=== PATIENT | female | born 1965 | race Caucasian/White ===

== ENCOUNTER 2018-10-11 03:59 | Inpatient (IN) | payer OTHER ==
[2018-10-11 04:05] VITALS: BMI 22.6
--- NOTE | 2018-10-11 04:10 | ED PDOC ---
Arrival/HPI - General Chief Complaint: Dizziness/Lightheaded Time Seen by Provider: 10/11/18 04:01 Historian: Patient, Parent EM Caveat: Acuity of Condition - History of Present Illness Narrative History of Present Illness (Text): 10/11/18 04:15 Patient is a 53 yo with no significant PMH who presents with dizziness and vomiting. Patient's parents are at the bedside who help provide history as patient is actively vomiting. Patient's father states that around 1:30 AM, patient woke up and was tossing and turning in her bed. Father reports that she was moaning and told him that she was dizzy. Patient then proceeded to vomit x2 prior to arrival. Patient is able to state that she is only taking a medication for cholesterol. She is repeatedly stating "I'm very dizzy, I need help." Patient's father said a similar episode occurred about 6-8 years ago. At that time, he does not recall what happened exactly other then she was diagnosed with "vertigo." Patient is unable to provide a full ROS due to her actively vomiting. She refuses to open her eyes. She cannot articulate whether or not light or sound is bothering her. Patient cannot state whether or not she hit her head. Father thinks she did not as she was previously sleeping in her bed and that is where he found her. He denies that she gets headaches frequently. Time/Duration: 1-3 hours Symptom Course: Worsening Activities at Onset: Rest Past Medical History - Provider Review Nursing Documentation Reviewed: Yes Family/Social History Family/Social History: Unknown Family HX Allergies/Home Meds Allergies/Adverse Reactions: Allergies No Known Allergies Allergy (Verified 10/11/18 04:05) Home Medications: Home Meds Medication Instructions Recorded Confirmed Meclizine HCl [Dramamine Less 25 mg PO PRN PRN 10/11/18 10/11/18 Drowsy] Review of Systems - Review of Systems Systems not reviewed;Unavailable: Acuity of Condition Physical Exam - Physical Exam Physical Exam Limitations: Other (Patient actively vomiting and uncooperative) Vital Signs Reviewed: Yes Temperature: Afebrile Blood Pressure: Hypotensive Pulse: Regular Respiratory Rate: Normal Appearance: Positive for: Ill-Appearing, Uncomfortable - Systems Exam Head: Present: Atraumatic Pupils: Present: Other (patient refuses to open her eyes) Respiratory/Chest: Present: Good Air Exchange. No: Respiratory Distress, Accessory Muscle Use Cardiovascular: Present: Regular Rate and Rhythm, Normal S1, S2 Abdomen: No: Tenderness, Distention Skin: Present: Warm, Dry Psychiatric: Present: Alert Medical Decision Making ED Course and Treatment: 10/11/18 05:38 Patient received Reglan, Toradol, and IVF. Still complaining of dizziness and vomiting. 10/11/18 05:43 CT scan machine went down. Need to re-scan patient. 10/11/18 06:[address] scan. She is sleeping, not vomiting. 10/11/18 06:35 Patient sleeping in no acute distress. Starts moaning when filing writer approaches. Still refusing to open her eyes. Re-evaluation Time: 05:36 Reassessment Condition: Re-examined, Improving,but remains with symptoms - Lab Interpretations I have reviewed the lab results: Yes Interpretation: No clinic. lab abnormalty - RAD Interpretation Radiology Orders: CT head- no acute findings Patient Centered Care Specialist: ED Physician, Radiologist - EKG Interpretation EKG Interpretation (Text): 10/11/18 04:27 prolonged QTc 528 Interpreted by ED Physician: Yes Type: 12 lead EKG - Medication Orders Current Medication Orders: 10/11/18 04:28 Meclizine 25 mg PO Reglan 10 mg IV Toradol 30 mg IVP NS @ 250 cc/hr 10/11/18 05:38 Reglan 10 mg IV Disposition/Present on Arrival - Present on Arrival Any Indicators Present on Arrival: No - Disposition Have Diagnosis and Disposition been Completed?: Yes Diagnosis: Vertigo Disposition: HOSPITALIZED Disposition Time: 08:00 Patient Plan: Admission Patient Problems: Current Active Problems Problem Status Onset Vertigo Acute Condition: GUARDED
[2018-10-11] MEDS ORDERED: Sodium Chloride 0.9% 1,000 ML IV ONE (04:18)
[2018-10-11 05:02] LABS: HEMOGLOBIN 11.1 g/dL (12.0-16.0); MEAN CELL VOLUME 83.3 fl (80.0-105.0); RBC 4.06 10^6/uL (3.5-6.1); WHITE BLOOD COUNT 9.3 10^3/uL (4.5-11.0)
[2018-10-11 05:03] LABS: BASO # 0.04 K/mm3 (0.0-2.0); EOS # 0.1 (0.0-0.7); EOS % 1.2 % (1.5-5.0); LYMPH # 4.2 (1.2-3.4); LYMPH % 45.4 % (22.0-35.0); MEAN CORPUSCULAR HEMOGLOBIN 27.3 pg (25.0-35.0); MEAN CORPUSCULAR HGB CONC 32.8 g/dl (31.0-37.0); MEAN PLATELET VOLUME 11.2 fl (7.0-11.0); MONO # 0.5 (0.1-0.6); MONO % 4.9 % (1.0-6.0); RED CELL DISTRIBUTION WIDTH 15.1 % (11.5-14.5)
[2018-10-11 05:30] LABS: ALB/GLOB RATIO 1.3 (1.1-1.8); ALBUMIN 4.3 g/dL (3.0-4.8); ALT/SGPT 17 U/L (7-56); AST/SGOT 30 U/L (14-36); BLOOD UREA NITROGEN 21 mg/dL (7-21); CALCIUM 9.3 mg/dL (8.4-10.5); GFR NON-AFRICAN AMERICAN > 60
[2018-10-11 05:40] LABS: TROPONIN I < 0.01 ng/mL
--- NOTE | 2018-10-11 07:28 | CT ---
Date of service: 10/11/2018 PROCEDURE: CT HEAD WITHOUT CONTRAST. HISTORY: dizzy, vomiting COMPARISON: None available. TECHNIQUE: Axial computed tomography images were obtained through the head/brain without intravenous contrast. Radiation dose: Total exam DLP = 939.0 mGy-cm. This CT exam was performed using one or more of the following dose reduction techniques: Automated exposure control, adjustment of the mA and/or kV according to patient size, and/or use of iterative reconstruction technique. FINDINGS: HEMORRHAGE: No intracranial hemorrhage. BRAIN: Maria-white matter differentiation is preserved. There is no mass, mass effect or abnormal extra-axial fluid collection. There is no territorial infarction. The midline sagittal structures are normal. VENTRICLES: The ventricles are normal in size, shape and configuration. CALVARIUM: There is no calvarial fracture or extracranial soft tissue swelling. PARANASAL SINUSES: Predominantly clear. MASTOID AIR CELLS: Predominantly clear. OTHER FINDINGS: None. IMPRESSION: No acute intracranial abnormality.If there is a persistent focal neurologic deficit and an ongoing clinical concern for acute infarction, an MRI of the brain without intravenous contrast would be a more sensitive modality for evaluation of hyperacute/acute ischemic infarction. A preliminary report was provided by [facility].
--- NOTE | 2018-10-11 09:03 | ED PDOC ---
Physical Exam Vital Signs Temp Pulse Resp BP Pulse Ox 10/11/18 08:28 69 18 119/63 98 10/11/18 07:43 70 19 120/65 99 10/11/18 07:07 72 18 120/72 100 10/11/18 06:07 80 18 110/85 100 10/11/18 04:05 97.4 F L 84 20 101/43 L 99 Finger Stick Blood Glucose: 183 Medical Decision Making ED Course and Treatment: 10/11/18 08:[address] rojas pending discharge home. patient was initially prepared for discharge after several medication trial for acute vertigo. patient could not ambulate and still feels dizzy despite medications given, CT of the head unremarkable. admit accepted by dr. biswas to the hospitalist service for persistent vertigo. - Lab Interpretations Lab Results: Troponin I < 0.01 ng/mL 10/11/18 04:47 Total Bilirubin 0.3 mg/dL (0.2-1.3) 10/11/18 04:47 AST 30 U/L (14-36) 10/11/18 04:47 ALT 17 U/L (7-56) 10/11/18 04:47 Alkaline Phosphatase 59 U/L (38-126) 10/11/18 04:47 Total Protein 7.6 g/dL (5.8-8.3) 10/11/18 04:47 Albumin 4.3 g/dL (3.0-4.8) 10/11/18 04:47 Globulin 3.2 gm/dL 10/11/18 04:47 Albumin/Globulin Ratio 1.3 (1.1-1.8) 10/11/18 04:47 - RAD Interpretation Radiology Orders: 10/11/18 04:14 HEAD W/O CONTRAST [CT] Stat - Medication Orders Current Medication Orders: Discontinued Medications Sodium Chloride (Sodium Chloride 0.9%) 1,000 mls @ 250 mls/hr IV .Q4H ONE Stop: 10/11/18 08:17 Last Admin: 10/11/18 04:30 Dose: 250 mls/hr eMAR Start Stop Document 10/11/18 04:30 RG (Rec: 10/11/18 05:37 RG [facility] [id number]) Intravenous Solution Start Date 10/11/18 Start Time 04:30 Ketorolac Tromethamine (Toradol) 30 mg IVP STAT STA Stop: 10/11/18 04:21 Last Admin: 10/11/18 05:38 Dose: 30 mg MAR Pain Assessment Document 10/11/18 05:38 RG (Rec: 10/11/18 05:38 [place] [id number]) Pain Reassessment Is this a pain reassessment? Yes IVP Administration Document 10/11/18 05:38 RG (Rec: 10/11/18 05:38 [place] [id number]) Charges for Administration # of IVP Administrations 1 Meclizine HCl (Antivert) 25 mg PO STAT STA Stop: 10/11/18 04:19 Last Admin: 10/11/18 06:30 Dose: 25 mg Metoclopramide HCl (Reglan) 10 mg IVP STAT STA Stop: 10/11/18 04:19 Last Admin: 10/11/18 04:31 Dose: 10 mg IVP Administration Document 10/11/18 04:31 RG (Rec: 10/11/18 05:37 [place] [id number]) Charges for Administration # of IVP Administrations 1 Metoclopramide HCl (Reglan) 10 mg IVP STAT STA Stop: 10/11/18 05:39 Last Admin: 10/11/18 05:47 Dose: 10 mg IVP Administration Document 10/11/18 05:47 RG (Rec: 10/11/18 05:47 [place] [id number]) Charges for Administration # of IVP Administrations 1 Disposition/Present on Arrival - Present on Arrival Any Indicators Present on Arrival: No History of DVT/PE: No History of Uncontrolled Diabetes: No Urinary Catheter: No History of Decub. Ulcer: No History Surgical Site Infection Following: None - Disposition Have Diagnosis and Disposition been Completed?: Yes Diagnosis: Vertigo Disposition: HOSPITALIZED Disposition Time: 07:00 Patient Plan: Admission Patient Problems: Current Active Problems Problem Status Onset Vertigo Acute Condition: GUARDED Discharge Instructions (ExitCare): Vertigo (a Type of Dizziness) (DC) Additional Instructions: FRANCIS OSUNA, thank you for letting us take care of you today. The emergency medical care you received today was directed at your acute symptoms. If you were prescribed any medication, please fill it and take as directed. It may take several days for your symptoms to resolve. Return to the Emergency Department if your symptoms worsen, do not improve, or if you have any other problems. Please contact your doctor or call one of the physicians/clinics you have been referred to that are listed on the Patient Visit Information form that is included in your discharge packet. Bring any paperwork you were given at discharge with you along with any medications you are taking to your follow up visit. Our treatment cannot replace ongoing medical care by a primary care provider outside of the emergency department. Thank you for allowing the [facility] team to be part of your care today. Follow up with your primary care doctor in 2-3 days for re-evaluation and further management. Prescriptions: Meclizine [Meclizine*] 25 mg PO Q6 PRN #20 tab PRN Reason: Dizziness Referrals: [facility] Profile Req, [Non-Staff] - Follow up with primary Forms: Kanga (Faroese)
[2018-10-11] MEDS ORDERED: Sodium Chloride 0.9% 1,000 ML IV SCH ×3 (10:45→16:35)
[2018-10-11] MEDS ORDERED: Iodixanol 320 MG/ML 100 ML BOTTLE IV ONE (10:49)
--- NOTE | 2018-10-11 10:55 | CP.PCM.HP ---
<Charles Griffith - Last Filed: 10/11/18 10:40> History of Present Illness - History of Present Illness History of Present Illness: Charles Griffith DO, PGY-2: HPI For Dr. Enriqueta Odell 53 year old female with a past medical history of dyslipidemia and ear conditions, unspecified, who presented to [facility] after experiencing acute onset, unremiting vertigo, nausea, and vomiting that started 01:00 AM this morning when the patient was lying in bed. Patient reports seeing an ENT doctor on Friday who "cleaned her ears out," and put a scope in her nose. She does not know why this procedure was done. She denies any fever, chills, headache, chest pain, palpitations, neck pain, unilateral weakness or numbness. She admits to the room spinning sensation. Also while en route to the the third floor she vomited and urinated on herself. Otherwise, a 12 point ROS is negative except as mentioned as above PMH: Dyslipidemia Family History: Father of liver issues and mom had PSH: Denies Allergies: NKDA Social: Denies alcohol, tobacco, or illicit drug use Present on Admission - Present on Admission Any Indicators Present on Admission: No Review of Systems - Review of Systems All systems: reviewed and no additional remarkable complaints except (as per HPI) Past Patient History - Past Social History Smoking Status: Never Smoked - CARDIAC Hx Cardiac Disorders: No - PULMONARY Hx Respiratory Disorders: No - NEUROLOGICAL Hx Vertigo: Yes - HEENT Hx HEENT Problems: No - RENAL Hx Chronic Kidney Disease: No - ENDOCRINE/METABOLIC Hx Endocrine Disorders: No - HEMATOLOGICAL/ONCOLOGICAL Hx Blood Disorders: No - INTEGUMENTARY Hx Dermatological Problems: No - MUSCULOSKELETAL/RHEUMATOLOGICAL Hx Musculoskeletal Disorders: No - GASTROINTESTINAL Hx Gastrointestinal Disorders: No - GENITOURINARY/GYNECOLOGICAL Hx Genitourinary Disorders: No - PSYCHIATRIC Hx Psychophysiologic Disorder: No Hx Substance Use: No - SURGICAL HISTORY Hx Surgeries: No Meds Allergies/Adverse Reactions: Allergies Allergy/AdvReac Type Severity Reaction Status Date / Time No Known Allergies Allergy Verified 10/11/18 04:05 Physical Exam - Constitutional Appears: In Acute Distress - Head Exam Head Exam: ATRAUMATIC, NORMOCEPHALIC - Eye Exam Additional comments: patient refused this portion of the exam - ENT Exam ENT Exam: Mucous Membranes Moist - Neck Exam Neck exam: Positive for: Normal Inspection - Respiratory Exam Respiratory Exam: Clear to Auscultation Bilateral, NORMAL BREATHING PATTERN - Cardiovascular Exam Cardiovascular Exam: RRR, +S1, +S2 - GI/Abdominal Exam GI & Abdominal Exam: Normal Bowel Sounds, Soft - Extremities Exam Extremities exam: Positive for: normal inspection. Negative for: calf tenderness - Neurological Exam Neurological exam: Alert, Oriented x3 - Psychiatric Exam Psychiatric exam: Normal Affect, Normal Mood - Skin Skin Exam: Dry, Intact, Normal Color, Warm Results - Vital Signs Recent Vital Signs: Last Vital Signs Temp 97.4 F L 10/11/18 04:05 Pulse 70 10/11/18 09:15 Resp 18 10/11/18 09:15 BP 127/71 10/11/18 09:15 Pulse Ox 96 10/11/18 09:15 - Labs Result Diagrams: 10/11/18 04:47 10/11/18 04:47 Labs: Laboratory Results - last 24 hr 10/11/18 10/11/18 10/11/18 04:47 04:47 04:47 WBC 9.3 RBC 4.06 Hgb 11.1 L Hct 33.8 L MCV 83.3 MCH 27.3 MCHC 32.8 RDW 15.1 H Plt Count 317 MPV 11.2 H Neut % (Auto) 48.1 L Lymph % (Auto) 45.4 H [place] % (Auto) 4.9 Eos % (Auto) 1.2 L Baso % (Auto) 0.0 Lymph # (Auto) 4.2 H [place] # (Auto) 0.5 Eos # (Auto) 0.1 Baso # (Auto) 0.04 Absolute Neuts (auto) 4.47 Sodium 138 Potassium 3.5 L Chloride 104 Carbon Dioxide 23 Anion Gap 14 BUN 21 Creatinine 0.6 L Est GFR ( Amer) > 60 Est GFR (Non-Af Amer) > 60 Random Glucose 172 H Calcium 9.3 Phosphorus 1.6 L Magnesium 2.0 Total Bilirubin 0.3 AST 30 ALT 17 Alkaline Phosphatase 59 Lactate Dehydrogenase 477 Total Creatine Kinase 154 Troponin I < 0.01 Total Protein 7.6 Albumin 4.3 Globulin 3.2 Albumin/Globulin Ratio 1.3 Alcohol, Quantitative < 10 Assessment & Plan - Assessment and Plan (Free Text) Assessment: 53 year old female with a past medical history of dyslipidemia and ear condition, unspecified, who presented with acute, unremitting vertigo with N/V. MRI of brain and CTA of head and neck to rule out central process. Plan: 1) Vertigo - MRI of brain and CTA of head and neck to rule out central process - Valium 5 mg PO stat prior to MRI and to see if patient's vertigo responds to this therapy - IV fluids 125-150 mls/hr - Neurology consulted, recommendations appreciated - Zofran 4 mg q4h - Benadryl 25 mg IVP q8h PRN for vertigo starting at 18:00 2) DVT/GI prophylaxis - SCD - Protonix 40 IVP Daily Case was reviewed and discussed with Dr. Enriqueta Odell <Enriqueta Odell R - Last Filed: 10/11/18 16:55> Results - Vital Signs Recent Vital Signs: Last Vital Signs Temp 97.4 F L 10/11/18 04:05 Pulse 70 10/11/18 09:15 Resp 18 10/11/18 12:45 BP 127/71 10/11/18 09:15 Pulse Ox 96 10/11/18 09:15 - Labs Result Diagrams: 10/11/18 04:47 10/11/18 04:47 Labs: Laboratory Results - last 24 hr 10/11/18 10/11/18 10/11/18 04:47 04:47 04:47 WBC 9.3 RBC 4.06 Hgb 11.1 L Hct 33.8 L MCV 83.3 MCH 27.3 MCHC 32.8 RDW 15.1 H Plt Count 317 MPV 11.2 H Neut % (Auto) 48.1 L Lymph % (Auto) 45.4 H [place] % (Auto) 4.9 Eos % (Auto) 1.2 L Baso % (Auto) 0.0 Lymph # (Auto) 4.2 H [place] # (Auto) 0.5 Eos # (Auto) 0.1 Baso # (Auto) 0.04 Absolute Neuts (auto) 4.47 Sodium 138 Potassium 3.5 L Chloride 104 Carbon Dioxide 23 Anion Gap 14 BUN 21 Creatinine 0.6 L Est GFR ( Amer) > 60 Est GFR (Non-Af Amer) > 60 Random Glucose 172 H Calcium 9.3 Phosphorus 1.6 L Magnesium 2.0 Total Bilirubin 0.3 AST 30 ALT 17 Alkaline Phosphatase 59 Lactate Dehydrogenase 477 Total Creatine Kinase 154 Troponin I < 0.01 Total Protein 7.6 Albumin 4.3 Globulin 3.2 Albumin/Globulin Ratio 1.3 Alcohol, Quantitative < 10 Attending/Attestation - Attestation I have personally seen and examined this patient.: Yes I have fully participated in the care of the patient.: Yes I have reviewed all pertinent clinical information: Yes Notes (Text): Patient seen and examined by me with resident at approximately 10:20AM on 10/11/18. Case including HPI, physical exam, and assessment and plan discussed with resident. Agree with above with following additions/corrections. Patient is a 53-year-old female past medical history significant for hyperlipidemia and vertigo in the past that presented to the emergency room with dizziness, nausea, and vomiting. Patient states that she woke up around 1 AM this morning and turned her head and began to feel the room spinning. She states that she has nausea and vomiting with any movement. She states she is unable to open her eyes secondary to severe dizziness. Patient states that she sees "black" when she opens her eyes. Patient states that she did see her ear nose throat doctor approximately 2 days and had her ears cleaned out. She states she also had a scope placed on her nose. She is unsure if dizziness is related to this. Patient states this happened approximately 7-8 years ago but was not this bad. Patient denies any chest pain or shortness of breath. No palpitations. No fevers or chills. No headaches. No head trauma. No recent illness. No abdominal pain. No dysuria. No diarrhea or constipation. 12 point review of systems reviewed by me. Please see above HPI. All other systems negative Home medications: Patient is on a statin at home and does not know the name. Family history: Mother is alive and has CAD. Father of "liver problems." Physical exam: General: Awake and alert lying in bed in no acute distress HEENT: Normocephalic, atraumatic. Unable to examine eyes as patient does not open eyes. Oropharynx is pink and moist. No pharyngeal erythema or exudate appreciated. Neck is supple. Cardiovascular: Normal rhythm. Normal S1 and S2. No murmurs, rubs, or gallops appreciated Pulmonary: Normal respiratory effort. No rhonchi, rales, or wheezing appreciated. Gastrointestinal: Soft, nondistended. Nontender. Positive bowel sounds all 4 qu adrants. No guarding. Musculoskeletal: Moves all extremities. No calf tenderness. No edema apprecia everette. Central nervous system: AAO x3. Dermatologic: Skin warm and dry. Assessment and plan: Patient is a 53-year-old female past medical history significant for hyperlipidemia and vertigo in the past that presented to the emergency room with dizziness, nausea, and vomiting. 1. Dizziness. May be vertigo. Gait instability secondary to dizziness. Rule out neurologic etiology. Neurology consulted. Head CT per radiologist showed no acute intracranial abnormality. Pending CTA head and neck. Pending MRI brain. Patient given multiple doses of meclizine in the emergency room with no relief. Valium and Zofran. Placed on IV fluids. PT eval and treat. 2. Nausea and vomiting. Secondary to dizziness. Placed on Zofran as needed. 3. History of hyperlipidemia. Patient unsure for home medication. Patient was advised to continue her medication upon discharge. Case was discussed in detail with the patient regarding current diagnosis, study results, and treatment plan. All questions answered
--- NOTE | 2018-10-11 12:08 | CT ---
Date of service: Wall are or are mild 10/11/2018 PROCEDURE: CTA HEAD AND NECK WITH CONTRAST HISTORY: vertigo, photophobia COMPARISON: None available. TECHNIQUE: Initial noncontrast head CT was performed. Subsequently, CT angiogram of the head and neck were performed after the intravenous administration of 80 mL of Omnipaque 350. Contiguous 1.5mm thick images were obtained in the axial plane of the neck. 2-D coronal and sagittal MPR images were obtained. Imaging postprocessing was performed with 3-D images also obtained. A delayed contrast head CT was also obtained. This CT exam was performed using one or more of the following dose reduction techniques: Automated exposure control, adjustment of the mA and/or kV according to patient size, and/or use of iterative reconstruction technique. Contrast dose: 100 mL Visipaque 320 Radiation dose: Total exam DLP = 457.53 mGy-cm. FINDINGS: HEAD: Right: The intracranial internal carotid artery, and anterior and middle cerebral arteries are widely patent. A1 segment is hypoplastic, an anatomic variant. Left: The intracranial internal carotid artery, and anterior and middle cerebral arteries are widely patent. Posterior circulation: The visualized intracranial vertebral arteries, basilar artery and posterior cerebral arteries are widely patent. There is no endoluminal filling defect to suggest thrombus. There is no intracranial saccular aneurysm. NECK: There is a three vessel aortic arch. There is no stenosis at the origins of the great vessels at the level of the aortic arch. There are atherosclerotic calcifications in the proximal right internal carotid artery. Right Carotid: On the right, the common carotid, internal carotid and external carotid arteries are widely patent. There is no hemodynamically significant stenosis in the internal carotid artery by NASCET criteria. Left Carotid: On the left, the common carotid, internal carotid and external carotid arteries are widely patent. There is no hemodynamically significant stenosis in the internal carotid artery by NASCET criteria. The vertebral arteries are widely patent. The visualized soft tissues of the neck are normal. The visualized brain and cervical spine are within normal limits. The lung apices are clear. There is a 7 mm septated subcentimeter nodule upper pole of the left thyroid. IMPRESSION: 1. No evidence of endoluminal thrombus,occlusion or definite significant stenosis in the intracranial arteries. 2. No evidence of hemodynamically significant stenosis in the internal carotid arteries. 3. Patent bilateral vertebral arteries. 4. 7 mm subcentimeter nodule in the upper pole of the left thyroid lobe. A dedicated thyroid ultrasound is recommended for complete evaluation of the thyroid gland.
--- NOTE | 2018-10-11 12:47 | CP.PCM.CON ---
History of Present Illness - History of Present Illness History of Present Illness: Neurology consult dictated. Miss Laird is a 53 yr old woman who has severe vertigo, and has horizontal nystagmus. She is now quite nauseous and vomiting, and will obtain MRI Brain and receive zofran IV. Plan; 1. IV zofran 2. MRI Brain without mariusz. Dr. henry Neurology Past Patient History - Past Social History Smoking Status: Never Smoked - CARDIAC Hx Cardiac Disorders: No - PULMONARY Hx Respiratory Disorders: No - NEUROLOGICAL Hx Vertigo: Yes - HEENT Hx HEENT Problems: No - RENAL Hx Chronic Kidney Disease: No - ENDOCRINE/METABOLIC Hx Endocrine Disorders: No - HEMATOLOGICAL/ONCOLOGICAL Hx Blood Disorders: No - INTEGUMENTARY Hx Dermatological Problems: No - MUSCULOSKELETAL/RHEUMATOLOGICAL Hx Musculoskeletal Disorders: No - GASTROINTESTINAL Hx Gastrointestinal Disorders: No - GENITOURINARY/GYNECOLOGICAL Hx Genitourinary Disorders: No - PSYCHIATRIC Hx Psychophysiologic Disorder: No Hx Substance Use: No - SURGICAL HISTORY Hx Surgeries: No Meds Allergies/Adverse Reactions: Allergies Allergy/AdvReac Type Severity Reaction Status Date / Time No Known Allergies Allergy Verified 10/11/18 04:05 - Medications Medications: Current Medications Diphenhydramine HCl (Benadryl) 25 mg IVP Q8H PRN PRN Reason: vertigo Sodium Chloride (Sodium Chloride 0.9%) 1,000 mls @ 125 mls/hr IV .Q8H [facility] Ondansetron HCl (Zofran Inj) 4 mg IVP Q6H PRN PRN Reason: Nausea/Vomiting Pantoprazole Sodium (Protonix Inj) 40 mg IVP DAILY [facility] Results - Vital Signs Recent Vital Signs: Last Vital Signs Temp 97.4 F L 10/11/18 04:05 Pulse 70 10/11/18 09:15 Resp 18 10/11/18 09:15 BP 127/71 10/11/18 09:15 Pulse Ox 96 10/11/18 09:15 - Labs Result Diagrams: 10/11/18 04:47 10/11/18 04:47 Labs: Laboratory Results - last 24 hr 10/11/18 10/11/18 10/11/18 04:47 04:47 04:47 WBC 9.3 RBC 4.06 Hgb 11.1 L Hct 33.8 L MCV 83.3 MCH 27.3 MCHC 32.8 RDW 15.1 H Plt Count 317 MPV 11.2 H Neut % (Auto) 48.1 L Lymph % (Auto) 45.4 H [place] % (Auto) 4.9 Eos % (Auto) 1.2 L Baso % (Auto) 0.0 Lymph # (Auto) 4.2 H [place] # (Auto) 0.5 Eos # (Auto) 0.1 Baso # (Auto) 0.04 Absolute Neuts (auto) 4.47 Sodium 138 Potassium 3.5 L Chloride 104 Carbon Dioxide 23 Anion Gap 14 BUN 21 Creatinine 0.6 L Est GFR ( Amer) > 60 Est GFR (Non-Af Amer) > 60 Random Glucose 172 H Calcium 9.3 Phosphorus 1.6 L Magnesium 2.0 Total Bilirubin 0.3 AST 30 ALT 17 Alkaline Phosphatase 59 Lactate Dehydrogenase 477 Total Creatine Kinase 154 Troponin I < 0.01 Total Protein 7.6 Albumin 4.3 Globulin 3.2 Albumin/Globulin Ratio 1.3 Alcohol, Quantitative < 10
--- NOTE | 2018-10-11 16:03 | MRI ---
Date of service: 10/11/2018 PROCEDURE: MRI BRAIN WITHOUT CONTRAST HISTORY: Vertigo, photophobia COMPARISON: CT head without contrast from 10/11/2018 TECHNIQUE: Multiplanar, multisequence MR images of the brain were obtained without intravenous contrast enhancement. FINDINGS: HEMORRHAGE: None DWI: No evidence of an acute or early subacute infarction. BRAIN PARENCHYMA: Maria-white matter differentiation is preserved. There is no mass, mass effect or abnormal extra-axial fluid collection. There is no territorial infarction. The midline sagittal structures are normal. VENTRICLES: There is mild age-related global parenchymal volume loss and proportionate enlargement of the ventricles and cortical sulci. CRANIUM: There is normal bone marrow signal pattern. ORBITS: Grossly unremarkable. PARANASAL SINUSES/MASTOIDS: There is mild mucosal thickening in the paranasal sinuses. There is a small right mastoid effusion. VASCULAR SYSTEM: There are normal signal voids in the larger intracranial arteries. OTHER FINDINGS: None. IMPRESSION: No acute intracranial abnormality. Normal noncontrast MRI of the brain.
[2018-10-11] MEDS ORDERED: DiphenhydrAMINE 50 mg/ml Inj IVP PRN (18:00)
--- NOTE | 2018-10-12 07:21 | CARD ---
APPROVED REPORT Date of service: 10/11/2018 EKG Measurement Heart [id number] <Conclusion> Normal sinus rhythm Prolonged QT Abnormal ECG
[2018-10-12 07:23] LABS: BASO # 0.01 K/mm3 (0.0-2.0); BASO % 0.2 % (0.0-3.0); EOS % 0.6 % (1.5-5.0); HEMOGLOBIN 10.3 g/dL (12.0-16.0); LYMPH # 3.5 (1.2-3.4); LYMPH % 52.4 % (22.0-35.0); MEAN CELL VOLUME 84.2 fl (80.0-105.0); MEAN CORPUSCULAR HEMOGLOBIN 26.6 pg (25.0-35.0); MEAN CORPUSCULAR HGB CONC 31.6 g/dl (31.0-37.0); MEAN PLATELET VOLUME 10.4 fl (7.0-11.0); MONO # 0.4 (0.1-0.6); MONO % 5.6 % (1.0-6.0); RBC 3.87 10^6/uL (3.5-6.1); RED CELL DISTRIBUTION WIDTH 15.5 % (11.5-14.5); WHITE BLOOD COUNT 6.6 10^3/uL (4.5-11.0)
[2018-10-12 07:48] LABS: ALB/GLOB RATIO 1.2 (1.1-1.8); ALBUMIN 3.4 g/dL (3.0-4.8); ALT/SGPT 19 U/L (7-56); AST/SGOT 24 U/L (14-36); BLOOD UREA NITROGEN 14 mg/dL (7-21); CALCIUM 8.3 mg/dL (8.4-10.5); GFR NON-AFRICAN AMERICAN > 60
[2018-10-12] MEDS: Sodium Chloride 0.9% 1,000 ML IV SCH (12:25)
--- NOTE | 2018-10-12 15:23 | CP.PCM.PN ---
<Davide Ruiz - Last Filed: 10/12/18 16:05> Subjective - Date & Time of Evaluation Date of Evaluation: 10/12/18 Time of Evaluation: 09:00 - Subjective Subjective: Davide Ruiz DO, PGY-1 Hospitalist Progress Note for Dr. Godoy Patient was seen and examined at bedside this AM. She is now opening her eyes wi thout significant worsening of dizziness. She attempted to ambulate with PT but was unable to stand for more than a few minutes without return of symptoms. She is also unable to tolerate diet but has not had any vomiting. Objective - Vital Signs/Intake and Output Vital Signs (last 24 hours): Temp Pulse Resp BP Pulse Ox 98.3 F 57 L 18 108/67 98 10/12/18 08:19 10/12/18 10:00 10/12/18 08:19 10/12/18 08:19 10/12/18 08:19 Intake and Output: 10/12/18 10/12/18 06:59 18:59 Intake Total 240 Output Total 500 Balance -260 - Medications Medications: Current Medications Diazepam (Valium) 2 mg PO Q8H PRN; Protocol PRN Reason: Dizziness Sodium Chloride (Sodium Chloride 0.9%) 1,000 mls @ 100 mls/hr IV .Q10H [facility] Last Admin: 10/12/18 12:25 Dose: 100 mls/hr Ondansetron HCl (Zofran Inj) 4 mg IVP Q6H PRN PRN Reason: Nausea/Vomiting Last Admin: 10/12/18 12:24 Dose: 4 mg Pantoprazole Sodium (Protonix Inj) 40 mg IVP DAILY [facility] Last Admin: 10/12/18 10:00 Dose: Not Given Scopolamine (Transderm-Scop) 1 patch TD Q3D [facility] Last Admin: 10/12/18 12:24 Dose: 1 patch - Labs Labs: 10/12/18 07:00 10/12/18 07:00 - Constitutional Appears: Other (uncomfortable, but opening eyes, talking more today, no acute respiratory distress) - Head Exam Head Exam: ATRAUMATIC, NORMOCEPHALIC - Eye Exam Eye Exam: EOMI, PERRL - ENT Exam ENT Exam: Mucous Membranes Moist - Neck Exam Neck Exam: Full ROM. absent: Lymphadenopathy, Thyromegaly - Respiratory Exam Respiratory Exam: Clear to Ausculation Bilateral, NORMAL BREATHING PATTERN. absent: Accessory Muscle Use, Rales, Rhonchi, Wheezes, Respiratory Distress - Cardiovascular Exam Cardiovascular Exam: REGULAR RHYTHM, RRR, +S1, +S2. absent: Gallop, Rubs, Murmur - GI/Abdominal Exam GI & Abdominal Exam: Soft, Normal Bowel Sounds. absent: Guarding, Tenderness - Extremities Exam Extremities Exam: Full ROM. absent: Pedal Edema - Neurological Exam Neurological Exam: Alert, Awake, Oriented x3 - Psychiatric Exam Psychiatric exam: Anxious - Skin Skin Exam: Dry, Intact, Warm Assessment and Plan - Assessment and Plan (Free Text) Assessment: 53 yo F with PMH of HLD and vertigo in the past (recently saw ENT) who presented to ED with a complaint of dizziness, nausea/vomiting, and inability to ambulate 2/2 dizziness. Plan: Dizziness Likely 2/2 vertigo She is now able to open her eyes without worsened dizziness Still unable to ambulate without worsening of symptoms She saw an ENT a few days ago and had her ears cleaned out and had a scope placed CTA head and neck, MRI negative for acute, concerning findings CTA head and neck did show 7 mm subcentimeter nodule in upper pole of L thyroid lobe Recommend outpatient w/u of thyroid nodule TSH WNL Continue PRN valium per neurology recs Will also start scopolamine Start NS at 100 cc/hr because patient has poor PO intake Give 1 x dose of valium this AM and request PT re-evaluation this afternoon May require additional day of PT prior to discharge Epigastric abdominal pain/nausea/vomiting May be 2/2 vertigo Lipase negative Continue protonix 40 mg IVP daily Continue PRN zofran HLD Patient unsure of home meds Call patient pharmacy to verify prior to discharge DVT/GI PPX: SCD/protonix Full Code HHD Monitor on med/surg Patient seen, examined with, and plan discussed with my attending Dr. Jayne Riuz, D.Anthony. IM Resident PGY-1 Pager: [phone] <Derik Godoy - Last Filed: 10/12/18 17:30> Objective - Vital Signs/Intake and Output Vital Signs (last 24 hours): Temp Pulse Resp BP Pulse Ox 98.5 F 60 20 122/74 97 10/12/18 17:00 10/12/18 17:00 10/12/18 17:00 10/12/18 17:00 10/12/18 17:00 Intake and Output: 10/12/18 10/12/18 06:59 18:59 Intake Total 240 Output Total 500 Balance -260 - Medications Medications: Current Medications Diazepam (Valium) 2 mg PO Q8H PRN; Protocol PRN Reason: Dizziness Sodium Chloride (Sodium Chloride 0.9%) 1,000 mls @ 100 mls/hr IV .Q10H [facility] Last Admin: 10/12/18 12:25 Dose: 100 mls/hr Meclizine HCl (Antivert) 25 mg PO Q8 [facility] Ondansetron HCl (Zofran Inj) 4 mg IVP Q6H PRN PRN Reason: Nausea/Vomiting Last Admin: 10/12/18 12:24 Dose: 4 mg Pantoprazole Sodium (Protonix Inj) 40 mg IVP DAILY [facility] Last Admin: 10/12/18 10:00 Dose: Not Given Scopolamine (Transderm-Scop) 1 patch TD Q3D [facility] Last Admin: 10/12/18 12:24 Dose: 1 patch - Labs Labs: 10/12/18 07:00 10/12/18 07:00 Attending/Attestation - Attestation I have personally seen and examined this patient.: Yes I have fully participated in the care of the patient.: Yes I have reviewed all pertinent clinical information, including history, physical exam and plan: Yes Notes (Text): Attending note; Patient seen and examined with resident. Patient is alert and awake. Still not able to sit up. Complaining of dizziness She had significant nausea and vomiting. Not able to do physical therapy this morning. Patient has significant nystagmus as per PT. Patient is a 53-year-old female past medical history significant for hyperlipidemia and vertigo in the past that presented to the emergency room with dizziness, nausea, and vomiting. 1. Dizziness/ severe vertigo: Gait instability secondary to dizziness. Head CT showed no acute intracranial abnormality. CT of head and neck is negative. MRI is negative. Patient given multiple doses of meclizine in the emergency room with no relief. Currently started on Valium and Zofran. Placed on IV fluids. Scopolamine patch ordered. 2. Nausea and vomiting. Secondary to dizziness. Placed on Zofran as needed. Continue IV fluids. Neurology evaluation appreciated. PT evaluation requested. Monitor closely.
--- NOTE | 2018-10-12 19:57 | CON ---
DATE: 10/12/2018 NEUROLOGY CONSULTATION REFERRING PHYSICIAN: Derik Godoy MD. HISTORY OF PRESENT ILLNESS: Ms. Laird is a 53-year-old woman with a past medical history of dyslipidemia, bilateral ear infections in the past, who presented to [facility] after having acute vertigo on Friday morning. The patient states that this started when she was lying in bed and it was associated with vertigo, nausea, and vomiting. There was no otalgia. There was no tinnitus. There was no difficulty in hearing. The patient had gone to her doctor on Friday and she stated that they injected some unspecified liquid, most likely saline into her ears, and apparently this exacerbated things. The patient had room spinning. She also vomited and urinated on herself on the way to the emergency room. REVIEW OF SYSTEMS: When I examined her was significant for fatigue, photophobia. No nuchal rigidity, no headache, no nausea and no vomiting. PAST MEDICAL HISTORY: Dyslipidemia. FAMILY HISTORY: Noncontributory. SOCIAL HISTORY: She is and has several children. No tobacco. No alcohol. The patient is currently working. ALLERGIES: NO KNOWN DRUG ALLERGIES. PHYSICAL EXAMINATION NEUROLOGICAL: The patient was alert and oriented x3. External ocular movements were intact. However, she did have significant horizontal beating nystagmus in both directions. She was not able to open her eyes when it came time for me to properly examine her visual field. There was no facial asymmetry. Cranial nerves II through XII were normal. EOMI. Motor tone. Strength is normal. Sensory is intact to fine touch, pin, position sense. Gait was not tested. The patient was severely uncomfortable, did not want to get up. Reflexes were +3 in upper and lower limbs bilaterally. There was no clonus. LABORATORY DATA: Within normal limits except for hemoglobin, which is 10.3; potassium, which is 3.5; glucose is 172, and phosphorus, which is low at 1.6. Toxicology was normal. MRI of the brain was done, which was normal. CT of the head and neck was done, which was normal. CAT scan of the head done, which was normal. IMPRESSION: A 53-year-old woman with acute vertigo. I suspect that she has baseline middle ear disease with no further neurological recommendations. Thank you for this interesting consult. Kalia Lucero MD [facility] # [id number]
[2018-10-13 07:07] LABS: BASO # 0.02 K/mm3 (0.0-2.0); BASO % 0.3 % (0.0-3.0); EOS # 0.1 (0.0-0.7); EOS % 1.4 % (1.5-5.0); LYMPH # 3.5 (1.2-3.4); LYMPH % 59.5 % (22.0-35.0); MEAN CELL VOLUME 83.6 fl (80.0-105.0); MEAN CORPUSCULAR HEMOGLOBIN 26.5 pg (25.0-35.0); MEAN CORPUSCULAR HGB CONC 31.6 g/dl (31.0-37.0); MEAN PLATELET VOLUME 10.5 fl (7.0-11.0); MONO # 0.4 (0.1-0.6); MONO % 6.3 % (1.0-6.0); RBC 3.78 10^6/uL (3.5-6.1); RED CELL DISTRIBUTION WIDTH 15.3 % (11.5-14.5); WHITE BLOOD COUNT 5.9 10^3/uL (4.5-11.0)
[2018-10-13 07:16] LABS: ALB/GLOB RATIO 1.3 (1.1-1.8); ALBUMIN 3.2 g/dL (3.0-4.8); ALT/SGPT 18 U/L (7-56); AST/SGOT 26 U/L (14-36); BLOOD UREA NITROGEN 12 mg/dL (7-21); CALCIUM 8.3 mg/dL (8.4-10.5); GFR NON-AFRICAN AMERICAN > 60
[2018-10-13] MEDS: Sodium Chloride 0.9% 1,000 ML IV SCH (09:50)
--- NOTE | 2018-10-13 13:42 | CP.PCM.PN ---
<Davide Ruiz - Last Filed: 10/13/18 13:39> Subjective - Date & Time of Evaluation Date of Evaluation: 10/13/18 Time of Evaluation: 10:00 - Subjective Subjective: Davide Ruiz DO, PGY-1 Hospitalist Progress Note for Dr. Godoy Patient was seen and examined at bedside this AM. Her dizziness has improved wit h intermittent doses of valium. However, she is still having difficulty ambulating and is not tolerating diet well. She is able to tolerate opening her eyes. She has continued to work with PT on vestibular training. Objective - Vital Signs/Intake and Output Vital Signs (last 24 hours): Temp Pulse Resp BP Pulse Ox 98.5 F 65 18 127/72 97 10/13/18 09:02 10/13/18 10:00 10/13/18 09:02 10/13/18 09:02 10/13/18 09:02 Intake and Output: 10/13/18 10/13/18 06:59 18:59 Intake Total 240 Output Total 250 Balance -10 - Medications Medications: Current Medications Diazepam (Valium) 2 mg PO Q8H PRN; Protocol PRN Reason: Dizziness Sodium Chloride (Sodium Chloride 0.9%) 1,000 mls @ 100 mls/hr IV .Q10H [facility] Last Admin: 10/13/18 09:50 Dose: 100 mls/hr Meclizine HCl (Antivert) 25 mg PO Q8 [facility] Last Admin: 10/13/18 13:17 Dose: 25 mg Ondansetron HCl (Zofran Inj) 4 mg IVP Q6H PRN PRN Reason: Nausea/Vomiting Last Admin: 10/12/18 20:09 Dose: 4 mg Pantoprazole Sodium (Protonix Ec Tab) 40 mg PO ACB [facility] Scopolamine (Transderm-Scop) 1 patch TD Q3D [facility] Last Admin: 10/12/18 12:24 Dose: 1 patch - Labs Labs: 10/13/18 06:15 10/13/18 06:15 - Constitutional Appears: Non-toxic, No Acute Distress - Head Exam Head Exam: ATRAUMATIC, NORMOCEPHALIC - Eye Exam Eye Exam: EOMI, PERRL - ENT Exam ENT Exam: Mucous Membranes Moist - Neck Exam Neck Exam: Full ROM. absent: Lymphadenopathy, Thyromegaly - Respiratory Exam Respiratory Exam: Clear to Ausculation Bilateral, NORMAL BREATHING PATTERN. absent: Accessory Muscle Use, Rales, Rhonchi, Wheezes, Respiratory Distress - Cardiovascular Exam Cardiovascular Exam: REGULAR RHYTHM, RRR, +S1, +S2. absent: Gallop, Rubs, Murmur - GI/Abdominal Exam GI & Abdominal Exam: Soft, Normal Bowel Sounds. absent: Guarding, Tenderness - Extremities Exam Extremities Exam: Full ROM. absent: Pedal Edema - Back Exam Back Exam: NORMAL INSPECTION - Neurological Exam Neurological Exam: Alert, Awake, Oriented x3 Neuro motor strength exam: Left Upper Extremity: 5, Right Upper Extremity: 5, Left Lower Extremity: 5, Right Lower Extremity: 5 Additional comments: horizontal nystagmus noted on initial examination, less today - Psychiatric Exam Psychiatric exam: Anxious - Skin Skin Exam: Dry, Intact, Warm Assessment and Plan - Assessment and Plan (Free Text) Assessment: 53 yo F with PMH of HLD and vertigo in the past (recently saw ENT) who presented to ED with a complaint of dizziness, nausea/vomiting, and inability to ambulate 2/2 dizziness. Plan: Dizziness Likely 2/2 vertigo Patient is improving, but still having difficulty ambulating even to bathroom without return of symptoms She has continued to work with PT who recommend an additional day of therapy prior to discharge At the time of discharge, patient may receive vestibular rehab outpatient CTA head and neck, MRI brain negative for concerning signs Will recommend patient f/u outpatient for incidental thyroid nodule identified on CTA neck Continue PRN valium, scopolamine May require additional day of PT prior to discharge Patient was at Dr. Saravia's office prior to presentation here Will place on consult and f/u any additional recs Epigastric abdominal pain/nausea/vomiting Likely 2/2 vertigo Epigastric abdominal pain improved this AM, but still having persistent nausea Is now tolerating liquids, advance diet slowly as tolerated Continue protonix 40 mg IVP daily Continue PRN zofran HLD Continue home meds DVT/GI PPX: SCD/protonix Full Code HHD Monitor on med/surg Patient seen, examined with, and plan discussed with my attending Dr. Jayne Ruiz, DLatanyaO. IM Resident PGY-1 Pager: [phone] <Derik Godoy - Last Filed: 10/14/18 13:52> Objective - Vital Signs/Intake and Output Vital Signs (last 24 hours): Temp Pulse Resp BP Pulse Ox 98.2 F 47 L 18 108/64 97 10/14/18 08:06 10/14/18 08:06 10/14/18 08:06 10/14/18 08:06 10/14/18 08:06 Intake and Output: 10/14/18 10/14/18 06:59 18:59 Intake Total 0 Balance 0 - Medications Medications: Current Medications Diazepam (Valium) 2 mg PO Q8H PRN; Protocol PRN Reason: Dizziness Sodium Chloride (Sodium Chloride 0.9%) 1,000 mls @ 100 mls/hr IV .Q10H [facility] Last Admin: 10/14/18 05:36 Dose: 100 mls/hr Meclizine HCl (Antivert) 25 mg PO Q8 [facility] Last Admin: 10/14/18 13:23 Dose: 25 mg Ondansetron HCl (Zofran Inj) 4 mg IVP Q6H PRN PRN Reason: Nausea/Vomiting Last Admin: 10/12/18 20:09 Dose: 4 mg Pantoprazole Sodium (Protonix Ec Tab) 40 mg PO ACB [facility] Last Admin: 10/14/18 09:18 Dose: 40 mg Prednisone (Prednisone Tab) 40 mg PO DAILY [facility] Last Admin: 10/14/18 09:18 Dose: 40 mg Scopolamine (Transderm-Scop) 1 patch TD Q3D [facility] Last Admin: 10/12/18 12:24 Dose: 1 patch - Labs Labs: 10/14/18 05:30 10/14/18 05:30 Attending/Attestation - Attestation I have personally seen and examined this patient.: Yes I have fully participated in the care of the patient.: Yes I have reviewed all pertinent clinical information, including history, physical exam and plan: Yes Notes (Text): 10/14/18 13:48 Attending note; Patient seen and examined with resident. Patient is alert and awake. Still not able to sit up and AMBULATE. complaining of dizziness Nausea and vomiting is resolving. Patient is a 53-year-old female past medical history significant for hyperlipidemia and vertigo in the past that presented to the emergency room with dizziness, nausea, and vomiting. 1. Dizziness/ severe vertigo: This episode started after she was evaluated by ENT and possible wax removal. ENT evaluation requested. Most likely Vestibular neuronitis. Gait instability secondary to dizziness. Head CT showed no acute intracranial abnormality. CT of head and neck is negative. MRI is negative. Continue meclizine and Valium. Started on scopolamine patch. 2. Nausea and vomiting. Resolving. Secondary to dizziness. Placed on Zofran as needed. Continue IV fluids. Neurology evaluation appreciated. PT evaluation appreciated. Continue vestibular therapy. Upon discharge the patient will follow-up with PMD Dr. Kendall.
--- NOTE | 2018-10-14 00:33 | CON ---
DATE: 10/13/[address] Odell. INDICATION: This 53-year-old female admitted into the ER with acute onset of vertigo with no major past medical history, no surgical history, presently on no real medications, presented with a 24 to 48-hour episode of acute onset of vertigo or spinning, which occurred in bed. The patient relates a history of ear partial cleaning on Friday 24 to 48 hours prior to the acute episode of vertigo. The patient does have a history of vertigo approximately 8 to 9 years ago not as severe. The patient denies any type of pain in the ear. Denies any type of change in hearing or tinnitus. The patient states that she is nauseous and unable to tolerate food. She is seen at this time at bedside with her family member. The patient states that she is much improved today. Yesterday, she had nystagmus as noted by primary medical doctor and today that has resolved. The patient has been followed with PT or vestibular physical therapy and is noted to be more mobile. The patient is on Valium at this time with no relief or resolution with meclizine. The patient denies any type of hearing, still feel partially clogged with no pain in the ear. PHYSICAL EXAMINATION: HEENT: Ears are clogged with cerumen impaction bilaterally. There is no erythema and no nystagmus. Nasal exam noted to have congestion with noted postnasal drip on the oral exam. The patient was lying in bed and was not asked to get up as she has physical therapy later on today. IMPRESSION: Acute onset of vertigo. RECOMMENDATIONS: To continue Valium, vestibular therapy, outpatient audio and VNG as discussed with family. Discussed the possibility of adding a tapered dose of prednisone to help the patient through this acute episode. The patient is to be discharged tomorrow. According to the nurse and notes from the PMD, it has been discussed with family member to follow up in the office as an outpatient for possible VNG considering her past medical history was also discussed and possible consultation with Neurotology. Jake Veloz DO
[2018-10-14] MEDS: Sodium Chloride 0.9% 1,000 ML IV SCH (05:36)
[2018-10-14 06:21] LABS: BASO # 0.03 K/mm3 (0.0-2.0); BASO % 0.4 % (0.0-3.0); EOS # 0.2 (0.0-0.7); EOS % 2.2 % (1.5-5.0); HEMOGLOBIN 11.6 g/dL (12.0-16.0); LYMPH # 3.6 (1.2-3.4); LYMPH % 51.8 % (22.0-35.0); MEAN CELL VOLUME 84.1 fl (80.0-105.0); MEAN CORPUSCULAR HGB CONC 32.1 g/dl (31.0-37.0); MEAN PLATELET VOLUME 10.2 fl (7.0-11.0); MONO # 0.5 (0.1-0.6); MONO % 7.3 % (1.0-6.0); RBC 4.29 10^6/uL (3.5-6.1)
[2018-10-14 06:58] LABS: ALB/GLOB RATIO 1.3 (1.1-1.8); ALBUMIN 3.6 g/dL (3.0-4.8); ALT/SGPT 23 U/L (7-56); AST/SGOT 20 U/L (14-36); BLOOD UREA NITROGEN 16 mg/dL (7-21); CALCIUM 8.8 mg/dL (8.4-10.5); GFR NON-AFRICAN AMERICAN > 60
[2018-10-14] MEDS ORDERED: Pantoprazole 40 mg EC Tab PO SCH (07:30)
[2018-10-14 08:07] VITALS: BP 108/64; PULSE 47; RESP 18; TEMP 98.2; O2SAT 97
--- NOTE | 2018-10-14 15:58 | CP.PCM.DIS ---
<Davide Ruiz - Last Filed: 10/14/18 15:48> Provider - Provider Date of Admission: 10/12/18 15:51 Attending physician: Derik Godoy MD Primary care physician: Ash Consults: 10/11/18 10:29 Physician Consult Routine Comment: Consulting Provider: Kalia Lucero Consulting Physician: Kalia Lucero Reason for Consult: dizziness, photophobia, likely vertigo 10/13/18 12:53 ENT [Otolaryngology Consult] Routine Consulting Provider: Demian Saravia Consulting Physician: Demian Saravia Reason for Consult: vertigo, pt of Dr. Saravia Time Spent in preparation of Discharge (in minutes): 45 Diagnosis - Discharge Diagnosis (1) Vertigo Status: Acute Hospital Course - Lab Results Lab Results: Most Recent Lab Values WBC 7.0 10^3/uL (4.5-11.0) 10/14/18 05:30 RBC 4.29 10^6/uL (3.5-6.1) 10/14/18 05:30 Hgb 11.6 g/dL (12.0-16.0) L 10/14/18 05:30 Hct 36.1 % (36.0-48.0) 10/14/18 05:30 MCV 84.1 fl (80.0-105.0) 10/14/18 05:30 MCH 27.0 pg (25.0-35.0) 10/14/18 05:30 MCHC 32.1 g/dl (31.0-37.0) 10/14/18 05:30 RDW 15.0 % (11.5-14.5) H 10/14/18 05:30 Plt Count 290 10^3/uL (120.0-450.0) 10/14/18 05:30 MPV 10.2 fl (7.0-11.0) 10/14/18 05:30 Neut % (Auto) 38.3 % (50.0-68.0) L 10/14/18 05:30 Lymph % (Auto) 51.8 % (22.0-35.0) H 10/14/18 05:30 [place] % (Auto) 7.3 % (1.0-6.0) H 10/14/18 05:30 Eos % (Auto) 2.2 % (1.5-5.0) 10/14/18 05:30 Baso % (Auto) 0.4 % (0.0-3.0) 10/14/18 05:30 Lymph # (Auto) 3.6 (1.2-3.4) H 10/14/18 05:30 [place] # (Auto) 0.5 (0.1-0.6) 10/14/18 05:30 Eos # (Auto) 0.2 (0.0-0.7) 10/14/18 05:30 Baso # (Auto) 0.03 K/mm3 (0.0-2.0) 10/14/18 05:30 Absolute Neuts (auto) 2.67 (1.4-6.5) 10/14/18 05:30 Sodium 143 mmol/L (132-148) 10/14/18 05:30 Potassium 3.8 mmol/L (3.6-5.0) 10/14/18 05:30 Chloride 108 mmol/L (98-107) H 10/14/18 05:30 Carbon Dioxide 27 mmol/L (21-33) 10/14/18 05:30 Anion Gap 11 (10-20) 10/14/18 05:30 BUN 16 mg/dL (7-21) 10/14/18 05:30 Creatinine 0.7 mg/dl (0.7-1.2) 10/14/18 05:30 Est GFR ( Amer) > 60 10/14/18 05:30 Est GFR (Non-Af Amer) > 60 10/14/18 05:30 Random Glucose 95 mg/dL (70-110) 10/14/18 05:30 Calcium 8.8 mg/dL (8.4-10.5) 10/14/18 05:30 Phosphorus 3.7 mg/dL (2.5-4.5) 10/12/18 07:00 Magnesium 2.0 mg/dL (1.7-2.2) 10/12/18 07:00 Total Bilirubin 0.2 mg/dL (0.2-1.3) 10/14/18 05:30 AST 20 U/L (14-36) 10/14/18 05:30 ALT 23 U/L (7-56) 10/14/18 05:30 Alkaline Phosphatase 45 U/L (38-126) 10/14/18 05:30 Lactate Dehydrogenase 477 U/L (333-699) 10/11/18 04:47 Total Creatine Kinase 154 U/L (35-230) 10/11/18 04:47 Troponin I < 0.01 ng/mL 10/11/18 04:47 Total Protein 6.5 g/dL (5.8-8.3) 10/14/18 05:30 Albumin 3.6 g/dL (3.0-4.8) 10/14/18 05:30 Globulin 2.8 gm/dL 10/14/18 05:30 Albumin/Globulin Ratio 1.3 (1.1-1.8) 10/14/18 05:30 Lipase 93 U/L (23-300) 10/12/18 07:00 TSH 3rd Generation 1.37 mIU/mL (0.46-4.68) 10/12/18 07:00 Alcohol, Quantitative < 10 mg/dL (0-10) 10/11/18 04:47 - Hospital Course Hospital Course: Davide Ruiz DO, PGY-1 Hospitalist Discharge Summary for Dr. Godoy Prior to admission: Patient is a 53 year old female with PMH of HLD and vertigo in the past (recently saw ENT) who presented to ED with a complaint of dizziness, nausea/vomiting, and inability to ambulate 2/2 dizziness. She was subsequently admitted for inpatient w/u and management of vertigo and PT to be able to ambulate again. Hospitalization course: Patient received initial head CT in ED which was negative for acute findings. MRI brain and CTA head and neck were also completed and negative for concerning findings. Initially she was unable to even open her eyes without significant exacerbation of sx's. She was treated with intermittent valium, meclizine, and scopolamine patch. These all improved her symptoms. She was able to work with PT which resulted in slow improvement in her symptoms. She initially had significant nausea/vomiting and was unable to tolerate diet. As she continued to improve, she tolerated diet well. She was evaluated by ENT, Dr. Saravia, who had seen her outpatient a few days prior to presentation. Only outpatient management was recommended. On examination this AM, patient is able to open her eyes and was seen ambulating in hallway with PT. She was recommended to continue vestibular rehab outpatient. Prescriptions were given for meclizine, medrol dose pack (per ENT recs), and protonix. Discharge plan was discussed with patient in detail. All questions were answered. Patient seen, examined with, and discharge plan discussed with my attending Dr. Jayne Ruiz D.O. IM Resident PGY-1 Discharge Exam - Head Exam Head Exam: ATRAUMATIC, NORMOCEPHALIC - Eye Exam Eye Exam: EOMI, PERRL - ENT Exam ENT Exam: Mucous Membranes Moist - Neck Exam Neck exam: Full Rom - Respiratory Exam Respiratory Exam: Clear to PA & Lateral, NORMAL BREATHING PATTERN, UNREMARKABLE. absent: Accessory Muscle Use, Rales, Rhonchi, Wheezes, Respiratory Distress - Cardiovascular Exam Cardiovascular Exam: REGULAR RHYTHM, RRR, +S1, +S2. absent: Diastolic murmur, Gallop, Rubs, Systolic Murmur - GI/Abdominal Exam GI & Abdominal Exam: Normal Bowel Sounds, Soft, Unremarkable. absent: Tenderness - Extremities Exam Extremities exam: full ROM, normal inspection - Back Exam Back exam: NORMAL INSPECTION - Neurological Exam Neurological exam: Alert, CN II-XII Intact, Oriented x3 Additional comments: no horizontal nystagmus on today's examination - Psychiatric Exam Psychiatric exam: Normal Affect, Normal Mood - Skin Skin Exam: Dry, Intact, Warm Discharge Plan - Discharge Medications Prescriptions: Meclizine HCl [Dramamine Less Drowsy] 25 mg PO Q8H PRN #42 tablet PRN Reason: Dizziness Methylprednisolone [Medrol Dose Pack (21 tabs)] See Taper PO DAILY #21 mg Pantoprazole Sodium [Protonix] 40 mg PO DAILY #10 tablet.dr - Follow Up Plan Condition: GOOD Disposition: HOME/ ROUTINE Instructions: Vertigo (a Type of Dizziness), Labyrinthitis, Vertigo (a Type of Dizziness) (DC), Dizziness, Nonvertigo, (DC) Additional Instructions: Please follow up with your primary medical doctor within 3-5 days of discharge. Please follow up with ENT doctor, Dr. Saravia, within 1 week of discharge. Please take meclizine as needed, valium as needed at night. Please do not drive or operate heavy machinery while taking valium. Please participate in outpatient vestibular therapy. This is what will help you the most. If your symptoms worsen or you experience new concerning symptoms please return to nearest emergency department. <Derik Godoy - Last Filed: 10/14/18 16:18> Provider - Provider Date of Admission: 10/12/18 15:51 Attending physician: Derik Godoy MD Consults: 10/11/18 10:29 Physician Consult Routine Comment: Consulting Provider: Kalia Lucero Consulting Physician: Kalia Lucero Reason for Consult: dizziness, photophobia, likely vertigo 10/13/18 12:53 ENT [Otolaryngology Consult] Routine Consulting Provider: Demian Saravia Consulting Physician: Demian Saravia Reason for Consult: vertigo, pt of Dr. Saravia Hospital Course - Lab Results Lab Results: Most Recent Lab Values WBC 7.0 10^3/uL (4.5-11.0) 10/14/18 05:30 RBC 4.29 10^6/uL (3.5-6.1) 10/14/18 05:30 Hgb 11.6 g/dL (12.0-16.0) L 10/14/18 05:30 Hct 36.1 % (36.0-48.0) 10/14/18 05:30 MCV 84.1 fl (80.0-105.0) 10/14/18 05:30 MCH 27.0 pg (25.0-35.0) 10/14/18 05:30 MCHC 32.1 g/dl (31.0-37.0) 10/14/18 05:30 RDW 15.0 % (11.5-14.5) H 10/14/18 05:30 Plt Count 290 10^3/uL (120.0-450.0) 10/14/18 05:30 MPV 10.2 fl (7.0-11.0) 10/14/18 05:30 Neut % (Auto) 38.3 % (50.0-68.0) L 10/14/18 05:30 Lymph % (Auto) 51.8 % (22.0-35.0) H 10/14/18 05:30 [place] % (Auto) 7.3 % (1.0-6.0) H 10/14/18 05:30 Eos % (Auto) 2.2 % (1.5-5.0) 10/14/18 05:30 Baso % (Auto) 0.4 % (0.0-3.0) 10/14/18 05:30 Lymph # (Auto) 3.6 (1.2-3.4) H 10/14/18 05:30 [place] # (Auto) 0.5 (0.1-0.6) 10/14/18 05:30 Eos # (Auto) 0.2 (0.0-0.7) 10/14/18 05:30 Baso # (Auto) 0.03 K/mm3 (0.0-2.0) 10/14/18 05:30 Absolute Neuts (auto) 2.67 (1.4-6.5) 10/14/18 05:30 Sodium 143 mmol/L (132-148) 10/14/18 05:30 Potassium 3.8 mmol/L (3.6-5.0) 10/14/18 05:30 Chloride 108 mmol/L (98-107) H 10/14/18 05:30 Carbon Dioxide 27 mmol/L (21-33) 10/14/18 05:30 Anion Gap 11 (10-20) 10/14/18 05:30 BUN 16 mg/dL (7-21) 10/14/18 05:30 Creatinine 0.7 mg/dl (0.7-1.2) 10/14/18 05:30 Est GFR ( Amer) > 60 10/14/18 05:30 Est GFR (Non-Af Amer) > 60 10/14/18 05:30 Random Glucose 95 mg/dL (70-110) 10/14/18 05:30 Calcium 8.8 mg/dL (8.4-10.5) 10/14/18 05:30 Phosphorus 3.7 mg/dL (2.5-4.5) 10/12/18 07:00 Magnesium 2.0 mg/dL (1.7-2.2) 10/12/18 07:00 Total Bilirubin 0.2 mg/dL (0.2-1.3) 10/14/18 05:30 AST 20 U/L (14-36) 10/14/18 05:30 ALT 23 U/L (7-56) 10/14/18 05:30 Alkaline Phosphatase 45 U/L (38-126) 10/14/18 05:30 Lactate Dehydrogenase 477 U/L (333-699) 10/11/18 04:47 Total Creatine Kinase 154 U/L (35-230) 10/11/18 04:47 Troponin I < 0.01 ng/mL 10/11/18 04:47 Total Protein 6.5 g/dL (5.8-8.3) 10/14/18 05:30 Albumin 3.6 g/dL (3.0-4.8) 10/14/18 05:30 Globulin 2.8 gm/dL 10/14/18 05:30 Albumin/Globulin Ratio 1.3 (1.1-1.8) 10/14/18 05:30 Lipase 93 U/L (23-300) 10/12/18 07:00 TSH 3rd Generation 1.37 mIU/mL (0.46-4.68) 10/12/18 07:00 Alcohol, Quantitative < 10 mg/dL (0-10) 10/11/18 04:47 Attending/Attestation - Attestation I have personally seen and examined this patient.: Yes I have fully participated in the care of the patient.: Yes I have reviewed all pertinent clinical information, including history, physical exam and plan: Yes Notes (Text): 10/14/18 16:16 Attending note; Patient seen and examined with resident. Patient is alert and awake. Dizziness is improving. Nausea and vomiting resolved. Tolerating regular diet. Patient was ambulating with physical therapy in the hallway. Patient is a 53-year-old female past medical history significant for hyperlipidemia and vertigo in the past that presented to the emergency room with dizziness, nausea, and vomiting. 1. Dizziness/ severe vertigo: This episode started after she was evaluated by ENT and possible wax removal. ENT evaluation appreciated. Patient started on p.o. steroids. Outpatient follow-up recommended. most likely Vestibular neuronitis. Gait instability secondary to dizziness. Head CT showed no acute intracranial abnormality. CT of head and neck is negative. MRI is negative. Continue meclizine and Valium. 2. Nausea and vomiting. Resolved. Secondary to dizziness. Placed on Zofran as needed. Tolerating regular diet. Neurology evaluation appreciated. PT evaluation appreciated. Continue vestibular therapy. Prescription for vestibular therapy given. Discharge home today. Follow-up with ENT as outpatient. Continue meclizine and Valium as needed. Complete p.o. steroid course. Upon discharge the patient will follow-up with PMD Dr. Kendall. 10/14/18 16:18
== END 2018-10-14 14:16 | disposition home or self-care (01) | DRG 111 ==
LOC: ED 03:59 → ERH 09:03 → 3RSO 10:03 → OBSVTOIN 10-12 15:51
PROVIDERS: ADMIT Hospitalist; ATTEND Internal Medicine
DX: H81.20 Vestibular neuronitis, unspecified ear (principal); E04.1 Nontoxic single thyroid nodule; E78.5 Hyperlipidemia, unspecified; H55.09 Other forms of nystagmus; H61.23 Impacted cerumen, bilateral; Z82.49 Family history of ischemic heart disease and other diseases of the circulatory system